=== PATIENT | male | born 1985 | race Hispanic/Latino ===

== ENCOUNTER 2017-06-16 02:27 | Emergency (ER) | payer SELFPAY | END 2017-06-16 03:54 | disposition home or self-care (01) | LOC: EDH 02:27 | DX: Z02.83 Encounter for blood-alcohol and blood-drug test (principal); E11.9 Type 2 diabetes mellitus without complications; I10 Essential (primary) hypertension; Z88.0 Allergy status to penicillin; Z72.0 Tobacco use ==

== ENCOUNTER 2022-10-12 13:00 | Emergency (ER) | payer OTHER ==
[~2022-10-12] VITALS: Ht 172.7 cm; Wt 72.6 kg
[2022-10-12] MEDS ORDERED: TETANUS/DIPHTHERIA TOXOID [ADULT] 0.5 ML VIAL IM ONE (14:30)
[2022-10-12] MEDS ORDERED: LIDOCAINE 1%-EPI 1:100,000 20 ML VIAL IJ ONE (14:51)
[2022-10-12] MEDS ORDERED: KETOROLAC 60 MG VIAL (30MG/ML) IM ONE (16:30)
[2022-10-12] MEDS ORDERED: NAPR-1174 PO (16:56)
[2022-10-12 17:12] VITALS: BP 138/94
== END 2022-10-12 17:22 | disposition home or self-care (01) ==
LOC: EDH 13:00
DX: S01.01XA Laceration without foreign body of scalp, initial encounter (principal); M54.50 Low back pain, unspecified; M25.511 Pain in right shoulder; F17.200 Nicotine dependence, unspecified, uncomplicated; X58.XXXA Exposure to other specified factors, initial encounter; Y93.89 Activity, other specified; Y92.89 Other specified places as the place of occurrence of the external cause; Y99.8 Other external cause status
CPT/HCPCS: 99285; 70450; 90714; 73562; 73030; 72125; 90471; 12011; 96372; J3490; J1885